=== PATIENT | female | born 1955 | race Caucasian/White ===

== ENCOUNTER → 2016-10-17 | Outpatient (CLI) | payer MEDICAID, SELFPAY | PROVIDERS: PCP Physician Assistant; Visit Provider Physician Assistant | DX: M50.11 Cervical disc disorder with radiculopathy, high cervical region (principal); M48.02 Spinal stenosis, cervical region | CPT/HCPCS: 72141 ==

== ENCOUNTER → 2016-11-17 | Outpatient (CLI) | payer MEDICAID, SELFPAY | PROVIDERS: PCP Physician Assistant; Visit Provider Specialist | DX: R94.31 Abnormal electrocardiogram [ECG] [EKG] (principal); R07.9 Chest pain, unspecified; R06.02 Shortness of breath; I10 Essential (primary) hypertension; E11.9 Type 2 diabetes mellitus without complications | CPT/HCPCS: 78452; 93016; 93017; 93018; A9502; J2785 ==

== ENCOUNTER → 2016-11-18 | Outpatient (CLI) | payer MEDICAID, SELFPAY | PROVIDERS: PCP Physician Assistant; Visit Provider Specialist | DX: R06.00 Dyspnea, unspecified (principal); R07.89 Other chest pain; R94.31 Abnormal electrocardiogram [ECG] [EKG]; E78.5 Hyperlipidemia, unspecified; E66.9 Obesity, unspecified | CPT/HCPCS: C8929; Q9957 ==

== ENCOUNTER → 2016-12-14 | Outpatient (CLI) | payer MEDICAID, OTHER, SELFPAY | PROVIDERS: PCP Physician Assistant; Visit Provider Physician Assistant | DX: Z86.11 Personal history of tuberculosis (principal) | CPT/HCPCS: 71020; 71046 ==

== ENCOUNTER 2017-12-03 18:02 | Emergency (ER) | payer MEDICARE, MEDICAID, SELFPAY ==
[2017-12-03 18:12] VITALS: BP 126/87; PULSE 88; RESP 18; TEMP 36.9; O2SAT 95; BMI 37.8
[2017-12-03 20:12] VITALS: BP 119/75; PULSE 87; RESP 16; O2SAT 100
[2017-12-03] MEDS: INFLUENZA VACCINE 0.5 ML SYRINGE IM (21:02)
[2017-12-03] MEDS: TRIMETH/SULFA 160/800 (DS) TABLET 1 TAB PO (21:02)
[2017-12-03 21:10] VITALS: BP 114/72; PULSE 78; RESP 18; O2SAT 100
--- NOTE | 2017-12-03 21:18 | ED_ITS ---
HPI - Extremity Injury (Lower) <Glenda Golden, [employer] - Last Filed: 12/03/17 22:32> General Chief Complaint: Extremity Injury, Lower Stated Complaint: infection lft foot, lft ear plugged up Time Seen by Provider: 12/03/17 20:28 Source: patient Mode of arrival: ambulatory Limitations: no limitations History of Present Illness HPI Narrative: Patient is a 62-year-old female with history of diabetes who presents with concerned about an infection on her great toe of her left foot. She states she had a pedicure 10 days ago and then noticed that her left great toe became red and head drainage. She denies any fevers, nausea, vomiting, diarrhea. She states that it has been draining yellow increased against her great toenail. She is concerned as she has a history of diabetes and does not want an infection. She states that she has a cerumen impaction in her left ear. She states this has been there for 3 months. Patient states she has not follow up with her primary care provider regarding her diabetes recently. Related Data Home Medications Medication Instructions Recorded Confirmed prochlorperazine maleate 10 mg PO BID #0 07/25/16 08/22/17 [Compazine] pramipexole 0.25 mg tablet 0.25 mg PO .QDAY #0 tab 08/22/17 08/22/17 pregabalin 225 mg capsule 225 mg PO .QDAY #0 cap 08/22/17 08/22/17 Previous Rx's Medication Instructions Recorded loratadine 1 tab PO Q DAY PRN #30 tab 10/11/16 fluticasone [Flonase Allergy 1 spray INTRANASAL QDAY #1 bot 11/22/16 Relief] nystatin [Nystop] 100,000 unit TOPICAL BID PRN #60 gm 02/09/17 pimecrolimus [Elidel] 1 debby TOPICAL Q DAY #30 gm 03/21/17 Glucose: Test Strips ea QID #100 04/18/17 buspirone 15 mg PO BID #60 tab 05/18/17 pravastatin 40 mg PO HS #90 tab 05/18/17 amitriptyline 25 mg PO SEE INSTRUCTIONS PRN #60 05/23/17 tab baclofen 10 mg PO HS PRN #30 tab 05/23/17 benzonatate 100 mg capsule 100 mg PO TIDP PRN #30 cap 07/07/17 glipizide 5 mg tablet 5 mg PO AMAC #30 tab 08/22/17 meloxicam 15 mg tablet 15 mg PO QDAY #30 tab 08/22/17 metformin ER 500 mg 500 mg PO DAILY #30 tab 08/22/17 tablet,extended release 24 hr ranitidine 150 mg capsule 150 mg PO BID #60 cap 08/22/17 tramadol 50 mg tablet 50 mg PO BID PRN #60 tab 08/22/17 sulfamethoxazole-trimethoprim 1 tab PO BID #20 tab 12/03/17 [Bactrim DS] Allergies Allergy/AdvReac Type Severity Reaction Status Date / Time black walnut [BLACK WALNUT] Allergy Mild I found Verified 12/03/17 18:21 out from a scraping on my back by an allergy dr Review of Systems <COLLIN Lee- - Last Filed: 12/03/17 22:32> Review of Systems GENERAL: Denies chills, fatigue, malaise, fever, sweats. HEENT: see HPI RESPIRATORY: Denies dyspnea, cough, wheezing, hemoptysis, sputum. CARDIOVASCULAR: Denies chest pain, palpitations, orthopnea, edema, GASTROINTESTINAL: Denies nausea, vomiting, abdominal pain, diarrhea, constipation, melena. : Denies dysuria, frequency, incontinence, hematuria, urinary retention. MUSCULOSKELETAL: see HPI SKIN: See HPI NEUROLOGIC: Denies weakness, headache, numbness, change in speech, confusion, seizures, incoordination. PSYCHIATRIC: No concerning psychosocial issues. 12 point review of systems is negative except for those stated above Exam <NAKIA Lee - Last Filed: 12/03/17 22:32> Narrative Exam Narrative: GENERAL: This is a well-nourished, well-developed patient, in no acute distress HEAD: Atraumatic. Normocephalic. No temporal or scalp tenderness. EYES: Pupils equal round and reactive. Extraocular motions intact. No scleral icterus. No injection or drainage. ENT: Nose without bleeding, purulent drainage or septal hematoma. Throat without erythema, tonsillar hypertrophy or exudate. Uvula midline. Airway patent. bilateral cerumen impaction NECK: Trachea midline. No JVD or lymphadenopathy. Supple, nontender, no meningeal signs. CARDIOVASCULAR: Regular rate and rhythm RESPIRATORY: Clear to auscultation. Breath sounds equal bilaterally. No wheezes , rales, or rhonchi. GASTROINTESTINAL: Abdomen soft, non-tender, nondistended. No hepato-splenomegaly , or palpable masses. No guarding. EXTREMITIES: No clubbing, cyanosis, or edema. No joint tenderness, effusion, or edema noted. Positive pedal pulses left foot. BACK: Nontender without deformity or crepitance. No flank tenderness. NEURO: AOx3. SKIN: paronchyia noted lateral aspect of left great toe. Purulent drainage noted. Erythema extending approximately 0.5 cm from nail. Initial Vital Signs Initial Vital Signs: Vital Signs Temperature 98.4 F 12/03/17 18:12 Pulse Rate 88 12/03/17 18:12 Respiratory Rate 18 12/03/17 18:12 Blood Pressure 126/87 12/03/17 18:12 Pulse Oximetry 95 12/03/17 18:12 <Federico Mendez DO - Last Filed: 12/04/17 03:41> Initial Vital Signs Initial Vital Signs: Vital Signs Temperature 98.4 F 12/03/17 18:12 Pulse Rate 88 12/03/17 18:12 Respiratory Rate 18 12/03/17 18:12 Blood Pressure 126/87 12/03/17 18:12 Pulse Oximetry 95 12/03/17 18:12 Course <GILBERT Lee - Last Filed: 12/03/17 22:32> Orders Ordered: Discontinued Medications Influenza Virus Vaccine (Flu Vaccine) 0.5 ml IM .ONCE ONE Stop: 12/03/17 20:47 Last Admin: 12/03/17 21:02 Dose: 0.5 ml Trimethoprim/Sulfamethoxazole (Bactrim Ds) 1 tab PO NOW ONE Stop: 12/03/17 20:47 Last Admin: 12/03/17 21:02 Dose: 1 tab Vital Signs - 8 hr 12/03/17 20:12 12/03/17 21:10 12/03/17 22:54 Temperature 98.7 F Pulse Rate 87 78 87 Respiratory Rate 16 18 18 Blood Pressure 129/97 H Blood Pressure [Left Arm] 119/75 114/72 Pulse Oximetry 100 100 98 <DO Renetta Monroe Last Filed: 12/04/17 03:41> Orders Ordered: Discontinued Medications Influenza Virus Vaccine (Flu Vaccine) 0.5 ml IM .ONCE ONE Stop: 12/03/17 20:47 Last Admin: 12/03/17 21:02 Dose: 0.5 ml Trimethoprim/Sulfamethoxazole (Bactrim Ds) 1 tab PO NOW ONE Stop: 12/03/17 20:47 Last Admin: 12/03/17 21:02 Dose: 1 tab Vital Signs - 8 hr 12/03/17 20:12 12/03/17 21:10 12/03/17 22:54 Temperature 98.7 F Pulse Rate 87 78 87 Respiratory Rate 16 18 18 Blood Pressure 129/97 H Blood Pressure [Left Arm] 119/75 114/72 Pulse Oximetry 100 100 98 MDM - Extremity Injury (Lower) <COLLIN Lee- - Last Filed: 12/03/17 22:32> MDM Narrative Medical decision making narrative: Given the patient's infection and History of diabetes, I will start her on Bactrim. her ears were flushed with some success in the emergency department. I urged her to follow up with primary care provider. I discussed return precautions of worsening of redness, fever, encouraged Epsom salt soaks. Patient had no questions or concerns upon discharge. Discharge Plan Departure Patient Disposition: Home Clinical Impression: Paronychia, Bilateral impacted cerumen Discharge Date/Time: 12/03/17 22:56 Interventions: ED Discharge Assessment Last Done: 12/03/17 22:54 Instructions: DI for Cerumen Impaction, DI for Paronychia Activity Restrictions/Additional Instructions: I am starting on an antibiotic for your infected toe. Please follow-up with your primary care provider. Please monitor for fever, worsening redness, vomiting or diarrhea. Please follow-up with primary care provider regarding her diabetes. We also cleaned out your ear wax today. Please follow-up with primary care provider if this continues to be an issue. Prescriptions: New sulfamethoxazole-trimethoprim [Bactrim DS] 800-160 mg tablet 1 tab PO BID Qty: 20 RF: 0 No Action metformin 500 mg tablet extended release 24 hr 500 mg PO DAILY Qty: 30 RF: 3 tramadol 50 mg tablet 50 mg PO BID PRN (Reason: Fibromyalgia pain) Qty: 60 RF: 3 ranitidine HCl 150 mg capsule 150 mg PO BID Qty: 60 RF: 3 pramipexole [Mirapex] 0.25 mg tablet 0.25 mg PO .QDAY Qty: 0 RF: 0 pregabalin [Lyrica] 225 mg capsule 225 mg PO .QDAY Qty: 0 RF: 0 meloxicam 15 mg tablet 15 mg PO QDAY Qty: 30 RF: 3 glipizide 5 mg tablet 5 mg PO AMAC Qty: 30 RF: 3 prochlorperazine maleate [Compazine] 10 MG tablet 10 mg PO BID Qty: 0 RF: 0 loratadine 10 MG tablet 1 tab PO Q DAY PRNQty: 30 RF: 3 fluticasone [Flonase Allergy Relief] 9.9 ML spray,suspension 1 spray Intranasal QDAY Qty: 1 RF: 5 nystatin [Nystop] 60 GM powder 100,000 unit Topical BID PRNQty: 60 RF: 3 pimecrolimus [Elidel] 1 % cream 1 debby Topical Q DAY Qty: 30 RF: 0 Glucose: Test Strips QID Qty: 100 RF: 3 pravastatin 40 MG tablet 40 mg PO HS Qty: 90 RF: 1 buspirone 15 MG tablet 15 mg PO BID Qty: 60 RF: 5 amitriptyline 25 MG tablet 25 mg PO SEE INSTRUCTIONS PRNQty: 60 RF: 5 baclofen 10 MG tablet 10 mg PO HS PRNQty: 30 RF: 3 benzonatate 100 mg capsule 100 mg PO TIDP PRN (Reason: cough) Qty: 30 RF: 1 Referrals: Sheryl Arreola PA-C [[facility]] - <Federico Mendez DO - Last Filed: 12/04/17 03:41> Cosign ED Attending Christiano Attestation: I was immediately available in the department for consultation. Documentation has been reviewed. I agree with assessment and plan.
[2017-12-03 22:54] VITALS: BP 129/97; PULSE 87; RESP 18; TEMP 37.1; O2SAT 98
== END 2017-12-03 22:56 | disposition home or self-care (01) ==
PROVIDERS: Emergency Provider Nurse Practitioner Family
DX: L03.032 Cellulitis of left toe (principal); H61.23 Impacted cerumen, bilateral
CPT/HCPCS: 69209; 90471; 90656; 99283; Q2038

== ENCOUNTER → 2018-05-28 08:10 | Outpatient (CLI) | payer MEDICARE, MEDICAID, SELFPAY ==
--- NOTE | 2018-05-28 | DI.MRI.S_ITS ---
PROCEDURE: MR LUMBAR SPINE WO CON INDICATIONS: SPINAL STENOSIS LUMBAR REGION TECHNIQUE: Noncontrast sagittal T1 spin echo and T2 fast echo, sagittal STIR, axial T1 and T2 fast spin echo through the lumbar spine. In cases with scoliosis, additional coronal T2 fast spin echo may be performed. COMPARISON: [facility], MR, L-SPINE WITHOUT CONTRAST, 04/25/2013, 10:05. [facility], MR, L-SPINE WITHOUT CONTRAST, 05/20/2011, 14:34. FINDINGS: Image quality: Excellent. Alignment and Curvature: There is normal bony alignment. Bone Marrow: Marrow is of normal overall signal. No acute vertebral body compression fractures. Spinal Cord: Conus medullaris terminates at the L1 level. Visualized cord demonstrates normal signal and size. Paraspinous Soft Tissues: No paravertebral masses. Incidental note is made of a retroaortic left renal vein. T12-L1: Normal appearance. L1-L2: Normal appearance. L2-L3: Normal appearance. L3-L4: The disc height is well-preserved. Loss of disc signal is seen at this level. Mild to moderate disc bulge is seen. Mild facet joint hypertrophy is seen. Minimal bilateral neural foraminal narrowing is seen. [id number] central canal narrowing is seen. These imaging findings have progressed compared to the prior study. L4-L5: The disc height is well-preserved. Loss of disc signal is seen at this level. Moderate generalized disc bulge is seen. There is moderate to prominent right-sided and moderate left-sided facet hypertrophy seen. There is moderate right-sided and mild to moderate left-sided neural foraminal narrowing seen. There is at least moderate central canal narrowing seen. Compared to 2013, these degenerative changes are clearly progressed. L5-S1: The disc height and disc signal are relatively well-preserved and no significant disc bulge is seen. Mild facet hypertrophy is seen. No significant neural foraminal or central canal narrowing can be seen. 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 IMPRESSION: Lumbar spine degenerative changes are seen, which are most prominent at the L4-L5 level. Compared to 2013, the degenerative changes have progressed. Dictated by: Otf Eng M.D. on 05/28/2018 at 8:03 Approved by: Otf Eng M.D. on 05/28/2018 at 8:07
== END ==
PROVIDERS: PCP Physician Assistant Medical; Visit Provider Physical Medicine & Rehabilitation Pain Medicine
DX: M48.062 Spinal stenosis, lumbar region with neurogenic claudication (principal); M47.816 Spondylosis without myelopathy or radiculopathy, lumbar region
CPT/HCPCS: 72148

== ENCOUNTER → 2020-10-09 08:53 | Outpatient (CLI) | payer MEDICARE, MEDICAID, SELFPAY ==
[2020-10-09 11:44] LABS: COVID19 -Nasal RAPID Negative (Negative)
== END ==
PROVIDERS: PCP Physician Assistant Medical; Referring Provider Internal Medicine; Visit Provider Internal Medicine
DX: Z01.812 Encounter for preprocedural laboratory examination (principal); Z20.822 Contact with and (suspected) exposure to COVID-19
CPT/HCPCS: 87635; C9803

== ENCOUNTER → 2020-10-09 08:57 | Outpatient (CLI) | payer OTHER, MEDICAID, SELFPAY ==
--- NOTE | 2020-10-14 08:22 | PM.PFT.1 ---
Pulmonary Function Test Referral & Results Date Patient Seen: 10/09/20 Requesting provider: Khadar Dotson Results: The spirometry demonstrates an FVC of 2.51 L which is 72% of predicted. The FEV1 was measured at 2.02 L which is 76% of predicted. The FEV1/FVC ratio was 80 which is 105% of predicted. Following the administration of bronchodilator there was a 24% improvement in FEF 25-75% Lung volumes show an SVC of 2.79 L which is 86% of predicted. The diffusing capacity was measured at 17.75 which is 62% of predicted. No hemoglobin value was provided, so no correction for potential anemia could be made, if appropriate. The maximum voluntary ventilation was reduced Interpretation: This study demonstrates probably very mild obstructive lung disease based on slight reduction FEV1 although FEV1/FVC ratio is preserved there is element of improvement following bronchodilator in small airway flow based on improvement in FEF 25-75% as above in shape a flow volume loop also supports the presence of obstructive lung disease Lung volumes are probably normal There is a [id number] reduction diffusing capacity as well suggesting an element of disease at the capillary alveolar level
== END ==
PROVIDERS: PCP Physician Assistant Medical; Referring Provider Internal Medicine Critical Care Medicine; Visit Provider Internal Medicine Critical Care Medicine
DX: Z01.812 Encounter for preprocedural laboratory examination (principal); R05 Cough; R06.02 Shortness of breath; Z87.891 Personal history of nicotine dependence; J98.8 Other specified respiratory disorders; J30.2 Other seasonal allergic rhinitis
CPT/HCPCS: 87635; 94060; 94726; 94729; C9803